=== PATIENT | female | born 2000 | race Caucasian/White ===

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

== ENCOUNTER → 2021-06-16 11:56 | Outpatient (CLI) | payer OTHER, SELFPAY ==
[2021-06-16 14:58] LABS: Absolute Lymphocyte Count 3.22 X10^3/uL (0.83-4.51); Absolute Neutrophil Count 4.6 X10^3/uL (2.0-7.7); Basophil# 0.04 X10^3/uL; Basophil% 0.5 % (0-1); Eosinophil# 0.11 X10^3/uL; Eosinophils% 1.2 % (0-5); Hematocrit 39.2 % (37-47); Hemoglobin 12.7 g/dL (12.0-15.0); Lymphocyte # 3.22 X10^3/ul (0.83-4.51); Lymphocyte % 36.5 % (19-41); Mean Corp Hgb Conc 32.4 g/dL (32-36); Mean Corpuscular Hgb 28.9 pg (27.0-32.0); Mean Corpuscular Volume 89.3 fL (81-99); Mean Platelet Vol. 10.8 fl (6.2-12.0); Monocyte# 0.85 X10^3/uL; Monocyte% 9.6 % (0-10); NRBC Flagged by Analyzer 0 % (0-5); Neutrophil # 4.58 X10^3/uL (2.7-7.7); Platelet Count 321 K/mm3 (150-450); RBC Distribution Width CV 12.9 % (11.6-14.6); RBC Distribution Width SD 42.4 fl (35.1-43.9); Red Blood Count 4.39 M/mm3 (4.2-5.4); White Blood Count 8.8 K/mm3 (4.4-11.0)
[2021-06-16 15:18] LABS: Internal QC Validated? YES +Cl - CLEAR BKGD; Monotest Negative (Negative); Vitamin B12 445 pg/mL (211-911); Vitamin D,25 Hydroxy 59.2 ng/mL
[2021-06-16 15:30] LABS: AST(SGOT) 14 U/L (15-37); Alanine Aminotransfer ALT/SGPT 23 U/L (13-56); Albumin, Serum 3.8 g/dL (3.2-5.0); Alkaline Phosphatase 94 U/L (45-117); Anion Gap 6 (5-15); BUN 11 mg/dL (7-18); BUN/Creat Ratio 15.1 RATIO (10-20); Calcium,Total 9.2 mg/dL (8.5-10.1); Chloride 102 mmol/L (98-107); Creatinine, Serum 0.73 mg/dL (0.55-1.02); EST Glomerular Filtration Rate 108 mL/min (>60); Est Glom Filt Rate - Afr Amer 131 mL/min (>60); Globulin 3.7 g/dL (2.2-4.2); Glucose 95 mg/dL (74-106); Potassium 4.2 mmol/L (3.5-5.1); Protein, Total 7.5 g/dL (6.4-8.2); Sodium Level 135 mmol/L (136-145); Thyroid Stim Hormone (TSH) 1.13 uIU/mL (0.358-3.74)
== END ==
PROVIDERS: PCP Internal Medicine; Referring Provider Nurse Practitioner Family; Visit Provider Nurse Practitioner Family
DX: E56.9 Vitamin deficiency, unspecified (principal); F32.9 Major depressive disorder, single episode, unspecified; R53.83 Other fatigue
CPT/HCPCS: 36415; 80053; 82306; 82607; 84443; 85025; 86308

== ENCOUNTER → 2021-07-11 08:27 | Outpatient (CLI) | payer OTHER, SELFPAY ==
[2021-07-11 12:47] LABS: Hematocrit 38.7 % (37-47); Hemoglobin 12.4 g/dL (12.0-15.0); Mean Corpuscular Hgb 29.1 pg (27.0-32.0); Mean Corpuscular Volume 90.8 fL (81-99); Mean Platelet Vol. 10.6 fl (6.2-12.0); Platelet Count 359 K/mm3 (150-450); RBC Distribution Width CV 13.1 % (11.6-14.6); RBC Distribution Width SD 43.1 fl (35.1-43.9); Red Blood Count 4.26 M/mm3 (4.2-5.4); White Blood Count 10.5 K/mm3 (4.4-11.0)
== END ==
PROVIDERS: PCP Internal Medicine; Referring Provider Internal Medicine; Visit Provider Internal Medicine
DX: N92.0 Excessive and frequent menstruation with regular cycle (principal)
CPT/HCPCS: 85027

== ENCOUNTER 2022-01-03 11:27 | Outpatient (CLI) | payer OTHER, SELFPAY ==
--- NOTE | 2022-01-03 11:29 | RAD_ITS ---
STUDY: CHEST SERIES-PA AND LATERAL VIEWS OF 1140 HOURS ON 01/03/2022 REASON FOR EXAM: 21-year-old female with cough and chest tightness. TECHNIQUE: A routine chest x-ray series was performed. COMPARISON: None. FINDINGS: The lungs are clear and expanded. There is no demonstrated pleural abnormality. No pulmonary mass lesions. Normal size heart. Normal mediastinum and yefri. Normal visualized pulmonary arteries. Normal visualized aortic arch and descending thoracic aorta. Normal visualized thoracic spine. Normal visualized ribs, clavicles, and shoulders. There is no demonstrated abnormality of the visualized soft tissue structures of the upper abdomen. There are no findings of an pneumonia, pneumonitis, or bronchitis. There is no evidence of cardiomegaly or heart failure. RAD/Chest PA and Lateral IMPRESSION: 1. Normal examination. 2. No active cardiopulmonary disease. 3. No pneumonia, pneumonitis, or bronchitis. Electronically Signed: Shawn Chirinos MD at 17:28 EDT ,
== END 2022-01-03 23:59 | disposition home or self-care (01) ==
PROVIDERS: PCP Internal Medicine; Visit Provider Internal Medicine
DX: R05.9 Cough, unspecified (principal)
CPT/HCPCS: 71046

== ENCOUNTER → 2023-03-28 | Outpatient (CLI) | payer OTHER, SELFPAY ==
[2023-04-01 19:39] LABS: HPV Reflexed? NOT INDICATED
== END | disposition home or self-care (01) ==
PROVIDERS: PCP Internal Medicine; Visit Provider Obstetrics & Gynecology
DX: Z12.4 Encounter for screening for malignant neoplasm of cervix (principal)
CPT/HCPCS: 88175; G0145

== ENCOUNTER → 2023-08-12 | Outpatient (CLI) | payer OTHER, SELFPAY ==
[2023-08-12 12:06] LABS: Absolute Lymphocyte Count 3.45 X10^3/uL (0.83-4.51); Absolute Neutrophil Count 3.7 X10^3/uL (2.0-7.7); Basophil# 0.05 X10^3/uL; Basophil% 0.6 % (0-1); Eosinophil# 0.11 X10^3/uL; Eosinophils% 1.4 % (0-5); Hemoglobin 12.3 g/dL (12.0-15.0); Lymphocyte # 3.45 X10^3/ul (0.83-4.51); Mean Corp Hgb Conc 31.5 g/dL (32-36); Mean Corpuscular Hgb 28.9 pg (27.0-32.0); Mean Corpuscular Volume 91.5 fL (81-99); Mean Platelet Vol. 11.2 fl (6.2-12.0); Monocyte# 0.55 X10^3/uL; NRBC Flagged by Analyzer 0 % (0-5); Neutrophil # 3.67 X10^3/uL (2.7-7.7); Neutrophil % 46.9 % (47-70); Platelet Count 318 K/mm3 (150-450); RBC Distribution Width SD 43.4 fl (35.1-43.9); Red Blood Count 4.26 M/mm3 (4.2-5.4); White Blood Count 7.8 K/mm3 (4.4-11.0)
[2023-08-12 13:03] LABS: ALB/GLOB Ratio 1.1 RATIO (0.9-2.4); AST(SGOT) 13 U/L (15-37); Alanine Aminotransfer ALT/SGPT 18 U/L (13-56); Albumin, Serum 3.8 g/dL (3.2-5.0); Alkaline Phosphatase 80 U/L (45-117); Anion Gap 4 (5-15); BUN 13 mg/dL (7-18); BUN/Creat Ratio 14.9 RATIO (10-20); Calcium,Total 9.1 mg/dL (8.5-10.1); Chloride 107 mmol/L (98-107); Cholesterol 184 mg/dL (200); Creatinine, Serum 0.88 mg/dL (0.55-1.02); EST Glomerular Filtration Rate 86 mL/min (>60); Est Glom Filt Rate - Afr Amer 104 mL/min (>60); Globulin 3.6 g/dL (2.2-4.2); Glucose 85 mg/dL (74-106); High Density Lipoprotein 73 mg/dL; Potassium 4.8 mmol/L (3.5-5.1); Protein, Total 7.4 g/dL (6.4-8.2); Sodium Level 139 mmol/L (136-145); Triglycerides 59 mg/dL; Very Low Density Lipoprotein 12 mg/dL (5-40)
== END | disposition home or self-care (01) ==
LOC: BIMLAB 10:26
PROVIDERS: PCP Internal Medicine; Visit Provider Internal Medicine
DX: F41.9 Anxiety disorder, unspecified (principal); F32.9 Major depressive disorder, single episode, unspecified; Z13.6 Encounter for screening for cardiovascular disorders
CPT/HCPCS: 36415; 80053; 80061; 85025

== ENCOUNTER → 2024-06-24 | Outpatient (CLI) | payer OTHER, SELFPAY ==
[2024-06-24 15:07] LABS: Absolute Lymphocyte Count 4.13 X10^3/uL (0.83-4.51); Absolute Neutrophil Count 4.9 X10^3/uL (2.0-7.7); Basophil# 0.05 X10^3/uL; Basophil% 0.5 % (0-1); Eosinophil# 0.16 X10^3/uL; Eosinophils% 1.6 % (0-5); Hematocrit 38.7 % (37-47); Hemoglobin 12.7 g/dL (12.0-15.0); Lymphocyte # 4.13 X10^3/ul (0.83-4.51); Lymphocyte % 40.4 % (19-41); Mean Corp Hgb Conc 32.8 g/dL (32-36); Mean Corpuscular Hgb 29.5 pg (27.0-32.0); Mean Platelet Vol. 10.9 fl (6.2-12.0); Monocyte# 0.89 X10^3/uL; Monocyte% 8.7 % (0-10); NRBC Flagged by Analyzer 0 % (0-5); Neutrophil # 4.89 X10^3/uL (2.7-7.7); Neutrophil % 47.7 % (47-70); Platelet Count 315 K/mm3 (150-450); RBC Distribution Width CV 13.1 % (11.6-14.6); RBC Distribution Width SD 42.8 fl (35.1-43.9); White Blood Count 10.2 K/mm3 (4.4-11.0)
[2024-06-24 15:36] LABS: ALB/GLOB Ratio 0.9 RATIO (0.9-2.4); AST(SGOT) 15 U/L (15-37); Alanine Aminotransfer ALT/SGPT 18 U/L (13-56); Albumin, Serum 3.9 g/dL (3.2-5.0); Alkaline Phosphatase 79 U/L (45-117); Anion Gap 5 (5-15); BUN 11 mg/dL (7-18); BUN/Creat Ratio 11.2 RATIO (10-20); Calcium,Total 9.7 mg/dL (8.5-10.1); Chloride 106 mmol/L (98-107); Creatinine, Serum 0.98 mg/dL (0.55-1.02); EST Glomerular Filtration Rate 75 mL/min (>60); Est Glom Filt Rate - Afr Amer 91 mL/min (>60); Globulin 4.3 g/dL (2.2-4.2); Glucose 84 mg/dL (74-106); Potassium 4.3 mmol/L (3.5-5.1); Protein, Total 8.2 g/dL (6.4-8.2); Sodium Level 137 mmol/L (136-145); T4 Free Direct 0.86 ng/dL (0.76-1.46)
[2024-06-24 16:49] LABS: Internal QC Validated? YES +Cl - CLEAR BKGD
[2024-06-24 16:50] LABS: Record Kit Lot#, Serum Preg. 772476
[2024-06-24 17:01] LABS: Vitamin B12 645 pg/mL (211-911)
[2024-06-25 08:57] LABS: Pregnancy, Serum, hCG Quali. POSITIVE Negative
== END | disposition home or self-care (01) ==
LOC: BIMLAB 13:45
PROVIDERS: PCP Internal Medicine; Referring Provider Internal Medicine; Visit Provider Internal Medicine
DX: F41.9 Anxiety disorder, unspecified (principal); F32.9 Major depressive disorder, single episode, unspecified
CPT/HCPCS: 36415; 80053; 82607; 84439; 84443; 84703; 85025

== ENCOUNTER → 2024-06-26 | Outpatient (CLI) | payer OTHER, SELFPAY ==
--- NOTE | 2024-06-26 08:10 | US_ITS ---
STUDY: ULTRASOUND BREAST - LEFT REASON FOR EXAM: Female, 23 years old. Palpable lump left breast. TECHNIQUE: Axial and longitudinal images of the LEFT breast were performed with a high resolution ultrasound transducer. # OF IMAGES: 9 COMPARISON: None. FINDINGS: LEFT Breast: The lateral periareolar region of the left breast was examined with ultrasound. There is a 7 mm x 6 mm x 3 mm benign-appearing lymph node at the 1:00 position of the breast at 3 cm from the nipple. US/Breast Limited Unilateral IMPRESSION: 7 mm x 6 mm x 3 mm benign-appearing lymph node at the 1:00 position of the breast at 3 cm from the nipple. ASSESSMENT CATEGORY: BIRADS Category 2: Benign. A letter regarding these results will be sent to the patient by the facility within 30 days. Electronically Signed: Juan Dodson MD at 10:12 EDT ,
== END | disposition home or self-care (01) ==
PROVIDERS: PCP Internal Medicine; Referring Provider Internal Medicine; Visit Provider Internal Medicine
DX: N63.20 Unspecified lump in the left breast, unspecified quadrant (principal)
CPT/HCPCS: 76642

== ENCOUNTER 2024-12-27 09:09 | Outpatient (CLI) | payer OTHER, SELFPAY ==
[2024-12-27 09:49] VITALS: BMI 31.1
--- NOTE | 2024-12-27 09:56 | OB.TRI.NOTE ---
[facility] - General General Date of Service: 12/27/24 Chief Complaint: vaginal bleeding HPI Narrative SHARIF DAVIS, is a 24 female 0 presents today complaining of vaginal bleeding. Patient reports that she was having some abdominal cramping intermittently last night radiating around to her back. She took some Tylenol and push fluids. She was able to rest throughout the night and the cramping was less intense this morning but she states she went to the bathroom this morning and had blood in the toilet. She denies any loss of fluids. She had some mild nausea last night but that is normal for her. She denies any diarrhea, constipation, fever, chills, hematuria. She denies any dysuria she denies any history of UTIs this . Maternal Data Information Final CHANI: [birth year]25 Gestational age: 30 12/18 [facility] Medical History (Updated 12/27/24 @ 10:[address] Lizeth Clarke MD) 30 weeks gestation of Amenorrhea Left breast lump Right shoulder pain Screening for cardiovascular condition Muscular pain Lymphadenopathy Constipation History of asthma Bronchitis Cough Anxiety and depression Overweight (BMI 25.0-29.9) Menorrhagia Fatigue Acne Depression Home Medications ?Medication ?Instructions ?Recorded ?Last Taken ?Type albuterol sulfate 90 mcg/actuation 2 puff inhalation Q6H PRN 01/03/22 Unknown Rx aerosol inhaler shortness of breath or wheezing #8.5 grams escitalopram oxalate 20 mg tablet 20 mg PO DAILY #90 tabs 12/07/24 Unknown Rx (Lexapro) cephalexin 500 mg capsule 500 mg PO TID 7 days #21 caps 12/27/24 Unknown Rx Allergy/AdvReac Type Severity Reaction Status Date / Time No Known Allergies Allergy Verified 12/21/24 15:27 Family History Mother Thyroid disorder Sister Thyroid disorder Surgical History No pertinent past surgical history Social History Smoking Status: Never smoker alcohol intake: never substance use type: does not use what type of physical activity do you participate in: none ROS ROS Narrative No CP/SOB/Cough no fevers or chills Physical Exam Narrative Awake, alert NAD abd- soft, nontender, gravid verbal consent for firewall engineer sensitive exam obtained, nursing present for this Normal external genitalia, normal introitus vagina w/ white/clear mucous, physiological discharge, cervix is smooth and nonfriable. Cervix is closed thick and high Brief ultrasound done transabdominally the placenta is left-sided mid to upper uterine area. Grossly normal amount of fluid. Active fetus in vertex position NST FHR Rate Baby A Baseline: 135 Variability:: Moderate Accelerations:: 10 x 10 Decelerations:: None NST Reactive:: Appropriate for gestational age Uterine Activity:: no regular ctxs Assessment & Plan (1) Abdominal cramping complicating , antepartum: (2) 30 weeks gestation of : PLAN: Plan Patient complaining of vaginal bleeding, no vaginal bleeding on exam. Suspect urinary source. Will monitor fetus and monitor patient for contractions. Will send urine for urinalysis and culture. Give patient p.o. fluids. If any vaginal bleeding occurs or evidence of labor will initiate IV and appropriate care for that. At this point seems like it is nonspecific abdominal cramping and likely urinary tract etiology for symptoms. Patient is reassured. SUpsect UTI, rx sent. F/u this week as scheduled or return as needed
[2024-12-27 10:03] LABS: Mucous, Urine 0 SEEN /hpf (<or=2+)
[2024-12-27 10:29] LABS: Glucose, Dipstick Normal (Normal); Ketone-Dipstick Negative (Negative); Leukocyte Esterase-Dipstick 100 /ul (Negative); Nitrite-Dipstick Negative (Negative); Occult Blood-Urine 250 /ul (Negative); Protein-Dipstick 15 mg/dl (Negative); Urine Bilirubin Dipstick Negative (Negative); Urine Clarity Sl. Cloudy (Clear); Urine Urobilinogen Normal (Normal)
[2024-12-27 10:31] LABS: Color, Urine SEE COMMENT BELOW (Yellow)
[2024-12-27 10:47] VITALS: BP 111/68; PULSE 64
[2024-12-27 10:50] LABS: Red Blood Cells-Urine > 100 SEEN /hpf (0-5); White Blood Cells 0-5 SEEN /hpf (0-5)
[2024-12-27 10:51] LABS: Bacteria 2+ /hpf (None Seen); Squamous Epithelial Cells - UA 0-5 SEEN /hpf (5-10)
== END 2024-12-27 11:00 | disposition home or self-care (01) ==
LOC: WPOUT 09:21 → WP 09:21
PROVIDERS: PCP Internal Medicine; Referring Provider Obstetrics & Gynecology; Visit Provider Obstetrics & Gynecology
DX: O46.93 Antepartum hemorrhage, unspecified, third trimester (principal); Z3A.30 30 weeks gestation of pregnancy; O99.343 Other mental disorders complicating pregnancy, third trimester; O99.513 Diseases of the respiratory system complicating pregnancy, third trimester; F32.A Depression, unspecified; J45.909 Unspecified asthma, uncomplicated; Z79.899 Other long term (current) drug therapy
CPT/HCPCS: 59025; 59050; 81001; 87086; 87088; 99221; G0378

== ENCOUNTER 2025-03-01 19:12 | Inpatient (IN) | payer OTHER, SELFPAY ==
[2025-03-01] VITALS (9 sets, daily range): BP systolic 114–140; BP diastolic 75–87; PULSE 69–100; O2SAT 100; BMI 32.3
--- NOTE | 2025-03-01 18:45 | HP.PCM.OB_ITS ---
HPI - General General Date of Admission: 03/01/25 Date of Service: 03/01/25 Chief Complaint: ctx's HPI Narrative SHARIF DAVIS, is a 24 F who presents with ctx's. Was seen in the office and was 3.5 cm dilated. Presents with worsening ctx's. No vb, lof. Good FM. PFSH PFS Medical History (Updated 03/01/25 @ 18:[address] Rosa M Hamilton, DO) 30 weeks gestation of Amenorrhea Left breast lump Right shoulder pain Screening for cardiovascular condition Muscular pain Lymphadenopathy Constipation History of asthma Bronchitis Cough Anxiety and depression Overweight (BMI 25.0-29.9) Menorrhagia Fatigue Acne Depression Home Medications ?Medication ?Instructions ?Recorded ?Last Taken ?Type albuterol sulfate 90 mcg/actuation 2 puff inhalation Q 6H PRN 01/03/22 Unknown Rx aerosol inhaler shortness of breath or wheez ing #8.5 grams escitalopram oxalate 20 mg tablet 20 mg PO DAILY #90 t abs 12/07/24 Unknown Rx (Lexapro) mupirocin 2 % topical ointment 1 applic topical BID #1 5 grams 02/14/25 Unknown Rx Allergy/AdvReac Type Severity Reaction Status Date / Time No Known Allergies Allergy Verified 02/14/25 09:13 Family History Mother Thyroid disorder Sister Thyroid disorder Surgical History No pertinent past surgical history Social History Smoking Status: Never smoker alcohol intake: never substance use type: does not use what type of physical activity do you participate in: none NST FHR Rate Baby A Baseline: 130 Variability:: Moderate Accelerations:: 15 x 15 Decelerations:: None NST Reactive:: Yes FHR Category:: Category I Labs Labs Labs: Hct 38.7 % (37-47) Hgb 12.7 g/dL (12.0-15.0) Assessment & Plan (1) 39 weeks gestation of : (2) Anemia affecting : (3) Active labor at term: PLAN: Patient presents with ctx's at 7 cm BBOW after membrane sweep in the office. Admit for labor. GBS negative. Epidural PRN pain. Pelvis adequate and EFW < 4500 grams.
[2025-03-01] MEDS: Oxytocin 10 UNITS/ML Vial IM (20:17)
[2025-03-01] MEDS: Lidocaine 1% (20 ml mdv) 20 ML Vial INFILT (21:00)
--- NOTE | 2025-03-01 21:09 | EX.PCM.OBVAG ---
Assessment & Plan (1) Vaginal hematoma: (2) Second degree perineal laceration: (3) Active labor at term: (4) Anemia affecting : (5) 39 weeks gestation of : Vaginal Delivery Maternal Presentation Maternal Presentation: Active Labor Vaginal Delivery Information Procedure Performed: Spontaneous Vaginal Delivery Surgeon/Practitioner: Rosa M Hamilton Date of Procedure: 03/01/25 Pre-Procedure Diagnosis: 39 week gestation, active labor Post-Procedure Diagnosis: As above Type of anesthesia: Local with 1% Lidocaine (For repair) Special Medications: None Estimated Blood Loss: 200 mL Fluids Replaced: N/A Findings Description of procedure: Patient came in 7 cm with BBOW and quickly progressed to 10 cm. An IV was attempted several times by nursing staff and anesthesia staff, and an IV was unable to be placed prior to delivery. AROM was performed for clear fluid. The head of the infant delivered, followed by shoulders and body without any force, delay or traction. A vigorous VFI was placed on maternal abdomen and the cord was clamped and cut after a 60 second delay by the FOB. The placenta delivered spontaneously and was noted to be normal appearing and intact with a 3 VC. The fundus was firm and bleeding hemostatic after IM Pitocin was given. A second degree perineal laceration was repaired in usual fashion using 3-0 Vicryl. The left lateral vaginal wall palpated firm in a 2x3 cm area and a vaginal wall hematoma was noted. Vaginal packing was placed and a Renee catheter was inserted in sterile fashion in the bladder. Sharp and sponge counts were correct. Procedure findings: Vigorous VFI Normal appearing placenta Second degree perineal laceration Left vaginal wall hematoma Presentation: Vertex Amniotic Membrane Rupture Type: Artificial Amniotic Fluid Description: Clear Placental Delivery Description: Spontaneous Specimen collected: No Cord Vessel Description: 3 Vessels Cord Entanglement: None Infant A Gender: Female Delayed Cord Clamping: Yes Corncob Pipe Supervisor stuffed casing tier: No Post Vaginal Deli Medications given after delivery: IM Pitocin Episiotomy Description: None Laceration: 2nd degree Complication Complications: No
[2025-03-01] MEDS: Escitalopram Oxalate 20 MG Tablet PO (22:11)
[2025-03-01 23:00] LABS: Absolute Lymphocyte Count 2.37 X10^3/uL (0.83-4.51); Absolute Neutrophil Count 15.2 X10^3/uL (2.0-7.7); Basophil# 0.06 X10^3/uL; Basophil% 0.3 % (0-1); Eosinophil# 0.04 X10^3/uL; Eosinophils% 0.2 % (0-5); Hematocrit 32.5 % (37-47); Hemoglobin 11.3 g/dL (12.0-15.0); Lymphocyte # 2.37 X10^3/ul (0.83-4.51); Lymphocyte % 12.6 % (19-41); Mean Corp Hgb Conc 34.8 g/dL (32-36); Mean Corpuscular Hgb 29.7 pg (27.0-32.0); Mean Corpuscular Volume 85.3 fL (81-99); Mean Platelet Vol. 10.9 fl (6.2-12.0); Monocyte% 5.3 % (0-10); NRBC Flagged by Analyzer 0 % (0-5); Neutrophil # 15.21 X10^3/uL (2.7-7.7); Neutrophil % 81.1 % (47-70); Platelet Count 216 K/mm3 (150-450); RBC Distribution Width CV 14.1 % (11.6-14.6); RBC Distribution Width SD 43.7 fl (35.1-43.9); Red Blood Count 3.81 M/mm3 (4.2-5.4); White Blood Count 18.8 K/mm3 (4.4-11.0)
[2025-03-01] MEDS: Ibuprofen 600 MG Tablet PO (23:18)
[2025-03-01] MEDS: Acetaminophen 500 MG Tablet PO (23:19)
[2025-03-01] MEDS: Benzocaine/Lanolin/Aloe Vera 85 GM Spray 1 SPRAY TOPICAL (23:20)
[2025-03-01 23:27] LABS: Syphilis Antibodies Nonreactive (Nonreactive)
[2025-03-02 04:41] VITALS: BP 135/84; PULSE 58; RESP 16; TEMP 36.5
[2025-03-02] MEDS: Ibuprofen 600 MG Tablet PO ×3 (05:31→23:27)
[2025-03-02] MEDS: Acetaminophen 500 MG Tablet PO ×2 (05:31→20:46)
[2025-03-02 06:52] LABS: Absolute Lymphocyte Count 4.04 X10^3/uL (0.83-4.51); Absolute Neutrophil Count 11.7 X10^3/uL (2.0-7.7); Basophil# 0.04 X10^3/uL; Basophil% 0.2 % (0-1); Eosinophil# 0.09 X10^3/uL; Eosinophils% 0.5 % (0-5); Hematocrit 31.8 % (37-47); Lymphocyte # 4.04 X10^3/ul (0.83-4.51); Lymphocyte % 23.8 % (19-41); Mean Corp Hgb Conc 34.6 g/dL (32-36); Mean Corpuscular Hgb 29.6 pg (27.0-32.0); Mean Corpuscular Volume 85.5 fL (81-99); Mean Platelet Vol. 10.8 fl (6.2-12.0); Monocyte# 0.94 X10^3/uL; Monocyte% 5.5 % (0-10); NRBC Flagged by Analyzer 0 % (0-5); Neutrophil # 11.73 X10^3/uL (2.7-7.7); Neutrophil % 69.3 % (47-70); POSITIVE MORPHOLOGY YES; Platelet Count 209 K/mm3 (150-450); RBC Distribution Width CV 14.1 % (11.6-14.6); RBC Distribution Width SD 43.7 fl (35.1-43.9); Red Blood Count 3.72 M/mm3 (4.2-5.4)
[2025-03-02 07:12] LABS: Differential Indicated SCAN CRITERIA MET
[2025-03-02 09:00] VITALS: BP 123/86; PULSE 86; RESP 16; TEMP 36.4; O2SAT 100
[2025-03-02 10:30] LABS: Reactive Lymphocyte 1+
--- NOTE | 2025-03-02 12:40 | PCM.PN.OB ---
Subjective Subjective Doing well per patient and nursing staff. Ambulating and taking PO without difficulty. Voiding and passing flatus. Pain controlled. , services for assistance. Denies headache, visual changes, chest pain, shortness of breath, leg pain or increased bleeding. Lochia normal. Objective Data Objective Data Vital Signs: Vital Signs Temp Pulse Resp BP Pulse Ox O2 Del Method 97.6 F L 86 16 123/86 H 100 Room Air 03/02/25 09:00 03/02/25 09:00 03/02/25 09:00 03/02/25 09:00 03/02/25 09:00 03/02/25 09:00 Oxygen Delivery Method Room Air Weight: 177 lb Body Mass Index (BMI) 32.3 Intake & Output: Intake and Output for Last 24 Hours 02/28/25 03/01/25 03/02/25 23:59 23:59 23:59 Output Total 900 / 900 1400 / 1400 Balance -900 / -900 -1400 / -1400 Lab / Micro Data 03/02/25 06:44 Labs: Laboratory Results - last 24 hr 03/01/25 22:45: WBC 18.8 H, RBC 3.81 L, Hgb 11.3 L, Hct 32.5 L, MCV 85.3, MCH 29.7, MCHC 34.8, RDW Std Deviation 43.7, RDW Coeff of Christiano 14.1, Plt Count 216, MPV 10.9, Immature Gran % (Auto) 0.500, Neut % (Auto) 81.1 H, Lymph % (Auto) 12.6 L, [place] % (Auto) 5.3, Eos % (Auto) 0.2, Baso % (Auto) 0.3, Absolute Neuts (auto) 15.2 H, Absolute Lymphs (auto) 2.37, Nucleated RBC % 0, Syphilis Total Ab Nonreactive, Blood Type O POSITIVE, Antibody Screen NEGATIVE 03/02/25 06:44: WBC 17.0 H, RBC 3.72 L, Hgb 11.0 L, Hct 31.8 L, MCV 85.5, MCH 29.6, MCHC 34.6, RDW Std Deviation 43.7, RDW Coeff of Christiano 14.1, Plt Count 209, MPV 10.8, Immature Gran % (Auto) 0.700, Neut % (Auto) 69.3, Lymph % (Auto) 23.8, [place] % (Auto) 5.5, Eos % (Auto) 0.5, Baso % (Auto) 0.2, Absolute Neuts (auto) 11.7 H, Absolute Lymphs (auto) 4.04, Nucleated RBC % 0, Reactive Lymphocytes 1+ ROS Constitutional Constitutional: Reports systems reviewed and no addt'l complaints, except as documented; Denies headache(s) Eyes Eyes: Denies acute decrease in peripheral vision, blurry vision or change in vision ENT HEENT: Reports systems reviewed and no addt'l complaints, except as documented Cardiovascular Cardiovascular: Denies chest pain or dizziness Respiratory/Chest Respiratory/Chest: Denies cough, dyspnea, dyspnea on exertion, shortness of breath at rest or shortness of breath with exertion Gastrointestinal Gastrointestinal: Denies abdominal pain, diarrhea, nausea or vomiting Genitourinary Genitourinary: Denies abdominal discomfort Musculoskeletal Musculoskeletal: Denies limited range of motion Integumentary Integumentary: Reports systems reviewed and no addt'l complaints, except as documented Neurologic Neurologic: Reports systems reviewed and no addt'l complaints, except as documented Psychiatric Psychiatric: Reports systems reviewed and no addt'l complaints, except as documented Endocrine Endocrinology: Reports systems reviewed and no addt'l complaints, except as documented Hematologic/Lymphatic Hematologic/Lymphatic: Reports systems reviewed and no addt'l complaints, except as documented Allergic/Immunologic Allergic/Immunologic: Reports systems reviewed and no addt'l complaints, except as documented Physical Exam Const alert and oriented x3 General Appearance: cooperative Orientation / Consciousness: awake, oriented to person, oriented to place and oriented to time Exam Limitations: no limitations HEENT normocephalic Head and Scalp: normal to inspection, normocephalic and atraumatic Face and Sinus: normal facial exam Eyes General Eye: normal appearance of both eyes Neck full ROM Chest Chest: symmetrical chest wall rise Resp normal respiratory effort and normal air movement Auscultation: clear to auscultation bilaterally Cardio regular rate, regular rhythm, S1 normal heart sound, S2 normal heart sound, no murmurs, no rub, no gallops and no clicks GI normal to inspection, nondistended, normoactive bowel sounds and non-tender GI Narrative: Fundus firm 2 below U appearance of the vagina normal Narrative: Vaginal packing removed without complication. Normal lochia rubra Bladder / Kidney Exam: no CVA tenderness Back/Spine normal ROM Extremity normal to inspection and full ROM Skin no rashes or lesions noted Neuro oriented x3, CN's II-XII intact bilaterally and moves all extremities Sensorium / Orientation: awake, alert and oriented to person Motor Exam: clonus absent Deep Tendon Reflexes: Rt Patellar (L4): 2+ and Lt Patellar (L4): 2+ Assessment & Plan (1) Vaginal hematoma: (2) Second degree perineal laceration: (3) Vaginal delivery: PLAN: Plan 1) Routine PPD#1 2) Vitals stable 3) I&O, remove becerra 4) Pain management 5) services PRN 6) Planning D/C home tomorrow
[2025-03-02 12:45] VITALS: BP 126/79; PULSE 75; RESP 16; TEMP 36.6; O2SAT 99
[2025-03-02] MEDS: Senna/Docusate Sodium 1 Tablet PO (16:16)
[2025-03-02 17:00] VITALS: BP 111/75; PULSE 100; RESP 18; TEMP 36.6; O2SAT 100
[2025-03-02 20:36] VITALS: BP 122/74; PULSE 64; RESP 16; TEMP 36.8; O2SAT 98
[2025-03-02] MEDS: Escitalopram Oxalate 20 MG Tablet PO (20:46)
[2025-03-03 04:15] VITALS: BP 100/69; PULSE 61; RESP 16; TEMP 36.2; O2SAT 99
--- NOTE | 2025-03-03 08:50 | DS.PCM_ITS ---
Providers Date of Admission: 03/01/25 Primary Care Physician: Dr. Anjel Charles MD Reason For Visit: LABOR Diagnosis Discharge Diagnosis (1) Vaginal hematoma: Status: Acute Code(s): N89.8 - Other specified noninflammatory disorders of vagina (2) Second degree perineal laceration: Status: Acute Code(s): O70.1 - Second degree perineal laceration during delivery (3) Vaginal delivery: Status: Acute Code(s): O80 - Encounter for full-term uncomplicated delivery Plan PPD 2 Routine care support D/C home with follow up in office for exam Medications at Discharge Home Medications escitalopram oxalate 20 mg tablet (Lexapro) 20 mg PO DAILY Depression #90 tabs 12/07/24 acetaminophen 500 mg tablet 500 - 1,000 mg (1 - 2 x 500 mg) PO Q6H PRN PRN Pain Score 1-3 #0 tabs 03/03/25 ibuprofen 600 mg tablet 600 mg PO Q6H PRN PRN Pain Score 1-10 #0 tabs 03/03/25 sennosides 8.6 mg-docusate sodium 50 mg tablet (Stimulant Laxative Plus) 1 - 2 tab PO DAILY PRN PRN Constipation #0 tabs 03/03/25 Hospital Course Operations None Procedures None Summary of Care Provided Minutes Spent on Discharge: 15 Hospital Course: Patient had vaginal delivery. Hospital course was uneventful. Physical Exam Narrative Patient seen at bedside. Denies pain. Ambulating and voiding without difficulty. Denies any vaginal pain or pressure. Packing removed yesterday. Lochia decreased. Desires discharge home today. Const alert and oriented x3 General Appearance: Negative for in distress HEENT normocephalic Eyes General Eye: normal appearance of both eyes Neck General: normal visual inspection Chest Chest: symmetrical chest wall rise Resp normal respiratory effort and normal air movement Effort and Inspection: symmetric chest movement; Negative for tachypneic Auscultation: clear to auscultation bilaterally Cardio regular rate and regular rhythm Peripheral Pulses: pulses 2+ throughout GI normal to inspection, nondistended, normoactive bowel sounds Narrative: Ice to perineum OB / External & Speculum: vaginal bleeding and other Lochia decreasing Uterus Palpation: uterus fundus firm (Below U) Extremity normal to inspection, full ROM and normal capillary refill Skin no rashes or lesions noted Neuro oriented x3, CN's II-XII intact bilaterally and gait normal Psych mental status grossly normal, thought process normal and activity/motor behavior normal Weight / BMI Weight Weight: 177 lb Body Mass Index (BMI) 32.3 ABG / Lab / Microbiology Data 03/02/25 06:44 Laboratory: Laboratory Results - last 24 hr 03/02/25 06:44: Reactive Lymphocytes 1+ D/C Instructions Discharge Diet: No restrictions Discharge Activity: Return to Normal Activity, No Restrictions, May Drive, May Shower and May Take a Tub Bath (Warm water only. No bath salts, soaps, bubbles) May resume sexual activity in: 6-8 weeks Weight Bearing Status: Weight bearing as tolerated Call your doctor if you observe: Fever of 101 or Higher, Inability to urinate, Using more than 1 pad per hour, Shortness of breath, Dizziness, Chest pain, Calf discomfort and Uncontrolled pain DC O2, CPAP, BIPAP Needs Home O2 Discharge instructions: No Please Follow Up With: [facility] When: 2 weeks in office or virtual Meaningful Use Info Meaningful Use Meaningful Use Diagnoses (Choose all that apply): None applicable Ischemic Stroke Statin Dosing Therapy Reference: STATIN DOSE THERAPY REFERENCE: * Patients > 75 years receive moderate or high dose statin therapy. * Patients 75 years or YOUNGER should receive HIGH intensity statin dose unless contraindicated. You will be required to document reason for non-treatment if statin daily dose does not meet guidelines. HIGH DOSE STATIN THERAPY DAILY Atorvastatin > than or = to 40 mg Rosuvastatin > than or = to 20 mg Amlodipine + Atorvastatin > than or = to 2.5/40 mg Ezetimibe + Simvastatin 10/80 mg Simvastatin 80mg Discharge Plan Admission Admit Date/Time: 03/01/25 19:12 Primary Reason for Your Visit: Labor and Delivery Attending Provider: Rosa M Hamilton Primary Care Provider: Anjel Charles Discharge Orders/Prescriptions Prescriptions: New sennosides-docusate sodium [Stimulant Laxative Plus] 8.6-50 mg Tablet 1 - 2 tab PO DAILY PRN PRN (Reason: Constipation) Qty: 0 0RF acetaminophen 500 mg Tablet 500 - 1,000 mg PO Q6H PRN PRN (Reason: Pain Score 1-3) Qty: 0 0RF ibuprofen 600 mg Tablet 600 mg PO Q6H PRN PRN (Reason: Pain Score 1-10) Qty: 0 0RF Continued escitalopram oxalate [Lexapro] 20 mg tablet 20 mg PO DAILY Qty: 90 0RF Referrals / Follow Up: Felicia Hinojosa CNM [Med Staff - [facility]] - Anjel Charles MD [Primary Care Provider] - Disposition Disposition (needs filled in before D/C Order can be placed): Home, Self Care
[2025-03-03 10:00] VITALS: BP 107/76; PULSE 108; RESP 16; TEMP 36.3
--- NOTE | 2025-03-03 10:47 | CASEMGMT ---
Social Work Labor and Delivery Unit Patient Address: [address] [place] [id number] Phone number: [phone] Date and Time of Referral:? 03/01/26 1781 Referred By: Rosa M Hamilton Date and time of intervention:? 03/02/25, 0850 Reason for Referral:??anxiety and depression Gray completed chart review and acknowledges social work consult due to maternal mental health history. Sw presented to bedside and introduced self to mother of baby (MOB- Shashi) and father of baby (FOB- Luis). Sw explained reason for sw involvement and completed psychosocial assessment. Informant:?? Medical record, MOB and FOB History:? SHANNA is 24 year old female who is 1, para 0- now 1 following labor and delivery of . MOB received routine care during . MOB delivered baby, Mic Arizmendi, on 03/01/25 who weighed 6lb 12oz. SHANNA is breast feeding and states that it is going well. This is first baby for MOB and FOB, who have been together for 3 years after knowing each other in high school. No concerns reported regarding domestic violence and intimate partner violence. MOB was working prior to delivery, and reports that now that baby is born she is going to stay home with her. 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 Parents report that they have natural supports in place and have obtained all necessary baby supplies, including: car seat, safe sleep space, clothes, diapers and wipes. FOB denies mental health history. MOB states that she has been diagnosed with anxiety and depression. SHANNA is prescribed Citalopram by her PCP. MOB states that her mental health has been managed since starting the Citalopram, stating that it has been the most effective pharmacological medication she has taken since struggling with her mental health. MOB states that during her she felt great, denying sadness, anxiety or depression. MOB states that the only time she struggles with her mental health is when she has missed several doses of her medication. Gray educated parents on signs and symptoms of baby blues and depression and anxiety to be mindful of. FOB states that he is able to recognize when MOB is struggling and would know how to help her if she were to struggle during this period. MOB states that she has been connected to mental health services in the past, but not within the last year. MOB states that she no longer sees her counselor, but is open to getting reconnected if she starts to feel as though she is having a hard time. MOB states that her mom is also supportive, and she feels comfortable reaching out to her if she needs help or guidance. Since delivering baby, MOB states that she has felt happiness and jose enrique, denying feeling down, sad, anxious or emotional. MOB states that she was slightly tearful the first night following delivery, however it was happiness due to delivering baby. Assessment:? MOB and baby admitted following labor and delivery of . MOB with mental health history positive for anxiety or depression, reporting that it was well managed during with the assistance of Citalopram. MOB was observed to be sitting comfortably in bedside chair holding baby. MOB smiling and engaging throughout conversation. FOB also present at bedside and was talkative throughout conversation. Parents observed to have supportive relationship and connection to baby. MOB held baby in loving and appropriate manner. Parents report to having everything they need for baby and have natural supports in place. MOB understanding of what signs and symptoms to be mindful of regarding baby blues and depression during this time. Plan:??? Information provided to parents regarding: shaken baby prevention, ABCs of safe sleep, [facility] resources, Help Me Grow, signs and symptoms of baby blues and depression and anxiety. MOB and baby to be discharged when medically ready. No further needs requested or indicated. Sunil Andrade, ROVING CARRIER, PROGRAM INSTRUCTOR
== END 2025-03-03 10:50 | disposition home or self-care (01) | DRG 806 ==
PROVIDERS: Admitting Provider Obstetrics & Gynecology; PCP Internal Medicine; Visit Provider Obstetrics & Gynecology
DX: O99.344 Other mental disorders complicating childbirth (principal); Z37.0 Single live birth; O71.7 Obstetric hematoma of pelvis; F32.A Depression, unspecified; F41.9 Anxiety disorder, unspecified; O70.1 Second degree perineal laceration during delivery; Z3A.39 39 weeks gestation of pregnancy; Z79.899 Other long term (current) drug therapy
CPT/HCPCS: 36415; 59025; 59050; 85025; 86780; 86850; 86900; 86901; 99221; G0378

== ENCOUNTER 2025-04-18 22:30 | Emergency (ER) | payer OTHER, SELFPAY ==
[2025-04-18 22:31] VITALS: BP 127/78; PULSE 64; RESP 20; TEMP 36.2; O2SAT 99; BMI 29.0
[2025-04-18] MEDS: 0.9% Normal Saline (1000mL) 1,000 ML 999 ML IV (23:15)
[2025-04-18 23:17] VITALS: BP 90/72; PULSE 63; RESP 18; O2SAT 99
[2025-04-18] MEDS: Famotidine 200 MG/20 ML MDV 20 MG in 0.9% Normal Saline (Pres. free 8 ML 300 MG IV ×2 (23:20→23:25)
[2025-04-18] MEDS: DiphenhydrAMINE 50 MG/ML Syringe IV (23:24)
[2025-04-18] MEDS: Epi Pen (EQUIV) 0.3 MG Syringe IM (23:25)
[2025-04-19] VITALS: BP 107/64; PULSE 66; RESP 18; O2SAT 100
[2025-04-19 01:00] VITALS: BP 117/84; PULSE 72; RESP 18; O2SAT 100
[2025-04-19 01:33] VITALS: BP 103/62; PULSE 68; RESP 18; TEMP 36.8; O2SAT 99
== END 2025-04-19 01:34 | disposition home or self-care (01) ==
PROVIDERS: Emergency Provider Emergency Medicine; PCP Internal Medicine; Visit Provider Emergency Medicine
DX: T78.40XA Allergy, unspecified, initial encounter (principal); F41.9 Anxiety disorder, unspecified; F32.A Depression, unspecified; M79.89 Other specified soft tissue disorders
CPT/HCPCS: 96361; 96372; 96374; 96375; 99283; A4216